=== PATIENT | female | born 1940 | race Caucasian/White ===

== ENCOUNTER 2024-04-17 11:09 | Outpatient (CLI) | payer MEDICARE | END 2024-04-17 11:10 | disposition home or self-care (01) | LOC: BICMRI 11:09 | PROVIDERS: ATTEND Nurse Practitioner Family | DX: M48.062 Spinal stenosis, lumbar region with neurogenic claudication (principal); M47.816 Spondylosis without myelopathy or radiculopathy, lumbar region; M47.817 Spondylosis without myelopathy or radiculopathy, lumbosacral region; M47.15 Other spondylosis with myelopathy, thoracolumbar region; M43.16 Spondylolisthesis, lumbar region | CPT/HCPCS: 72100; 72148 ==